=== PATIENT | male | born 1995 | race Caucasian/White ===

== ENCOUNTER 2018-12-23 23:38 | Emergency (ER) | payer OTHER ==
[~2018-12-23] VITALS: Ht 165.1 cm; Wt 65.3 kg
[2018-12-24 01:16] VITALS: BP 108/60
== END 2018-12-24 01:16 | disposition home or self-care (01) ==
LOC: ED 23:38
DX: R07.89 Other chest pain (principal)
CPT/HCPCS: J1885; Q0092